=== PATIENT | female | born 1980 | race Caucasian/White ===

== ENCOUNTER 2019-07-13 06:39 | Day surgery (SDC) | payer BC ==
[2019-07-13] MEDS ORDERED: Sodium Chloride 0.9% 1,000 ML IV SCH (07:00)
[2019-07-13] MEDS ORDERED: Sodium Tetradecyl Sulfate 1% 20 MG/2 ML SDV ONE (07:10)
[2019-07-13] MEDS ORDERED: Sodium Chloride 0.9% 10 ML ONE (07:10)
[2019-07-13] MEDS ORDERED: Lidocaine 1% with EPINEPHrine 1:100,000 50 ML MDV ONE (07:10)
[2019-07-13] MEDS ORDERED: Propofol 200 MG/20 ML SDV ONE ×4 (07:24→08:32)
[2019-07-13] MEDS ORDERED: Midazolam 1 MG/ML 2 ML SDV ONE (07:24)
[2019-07-13] MEDS ORDERED: fentaNYL 100 MCG/2 ML SDV ONE (07:24)
[2019-07-13] MEDS ORDERED: Lactated Ringers 1,000 ML ONE (08:44)
[2019-07-13] MEDS ORDERED: Acetaminophen/HYDROcodone 325-5 MG Tab PO ONE (10:00)
--- NOTE | 2019-07-13 11:40 | OR ---
DATE OF PROCEDURE: 07/13/2019 SURGEON: Pio Valenzuela MD PROCEDURE: 1. Radiofrequency ablation of right lesser saphenous vein. 2. Radiofrequency of right greater saphenous vein. 3. Radiofrequency ablation of left greater saphenous vein. 4. Sclerotherapy, left leg, multiple. 5. Sclerotherapy, right leg, multiple. 6. Compression wrap, left leg (11992). 7. Compression wrap, right leg (00410). COMPLICATIONS: None. HANDBAG FINISHER: None. ANESTHESIA: MAC/local. RISKS: Risks, benefits, alternatives, and limitations including, but not limited to infection, bleeding, and DVT formation were explained to the patient, who wished to proceed. PROCEDURE IN DETAIL: The patient was placed in supine position. The right lesser saphenous vein was addressed first. This was accessed using a 21-gauge needle then exchanged for a 35,000th wire, and then exchanged for a 7-Faroese sheath. The RFA probe was advanced 3 cm from the deep junction. Tumescent fluid was injected in a 1- cm jacket around this and was verified a second and a third time. The sheath and device were then removed. Direct pressure was held for 10 minutes and Dermabond was applied. The left and right greater saphenous veins were then addressed in same manner, same fashion, same technique, in the same sequence using the same equipment. Sclerotherapy was then performed of left and right legs. There were 5 on the right and 8 on the left. No more than 2 mL was injected in one location and 0.33% sodium tetradactyl was used and always drawn back to ensure intravascular injection only. Two-layer two-stage compression wrapping was then performed in a [id number] gradient. This was [id number] at 20 mmHg pressure. The patient tolerated the procedure well. Pio Valenzuela MD /[id number]
[2019-07-13] MEDS: Lidocaine 1% w/EPINEPHrine 50 ML, Sodium Bicarbonate 5 MEQ in Sodium Chloride 0.9% 950 ML INJECT SCH (14:57)
== END 2019-07-13 10:10 | disposition home or self-care (01) ==
LOC: JP.SDS 06:39
PROVIDERS: ATTEND Surgery
DX: I83.11 Varicose veins of right lower extremity with inflammation (principal); I83.12 Varicose veins of left lower extremity with inflammation; E66.9 Obesity, unspecified; Z68.33 Body mass index [BMI] 33.0-33.9, adult; Z87.891 Personal history of nicotine dependence
CPT/HCPCS: 36471; 36475; A9270; J1642; J2250; J2704; J3010; J7030; J7120; J3490